=== PATIENT | female | born 1975 | race Two or more races ===

== ENCOUNTER 2018-02-05 23:27 | Emergency (ER) | payer SELFPAY ==
[~2018-02-05] VITALS: Ht 162.6 cm; Wt 64.5 kg
[2018-02-05] MEDS ORDERED: MET750 PO (23:39)
[2018-02-05] MEDS ORDERED: NAPR-58 PO (23:39)
[2018-02-06 01:34] VITALS: BP 145/85
== END 2018-02-06 01:40 | disposition left against medical advice (07) ==
LOC: EMS 23:28
DX: N64.4 Mastodynia (principal); R51 Headache; Z53.21 Procedure and treatment not carried out due to patient leaving prior to being seen by health care provider